=== PATIENT | male | born 1995 | race Caucasian/White ===

== ENCOUNTER 2019-11-18 09:27 | Emergency (ER) | payer OTHER, MEDICAID, SELFPAY ==
[2019-11-18 09:30] VITALS: BP 186/98; PULSE 112; RESP 14; TEMP 36.9; O2SAT 97; BMI 21.1
--- NOTE | 2019-11-18 09:35 | ED_ITS ---
HPI - Anxiety General Chief Complaint: Toxicology Problem Stated Complaint: Out of Anxiety Meds/Alcohol withdrawal Time Seen by Provider: 11/18/19 09:35 Source: patient Mode of arrival: Ambulatory Limitations: no limitations History of Present Illness HPI narrative: This is a 24-year-old male comes to the emergency department with complaint of anxiety, states probably some alcohol withdrawal and out of his anxiety medications. He states that he was taking propranolol, sertraline as well as hydroxyzine which he got from [facility] ran out about 3 days ago. He states that the medications were quite helpful. He states when he ran out he started drinking alcohol, he states he has been drinking ?too much.? Patient states that it has been hard alcohol but he did try detoxing with wine. He does use marijuana but denies any other illicit. He states this morning he woke up and was shaky so thought he might have had seizure. He has not had any confusion or altered mental status. He has not had any seizures in past. He has had some diarrhea but no nausea vomiting he states he has been feeling quite anxious and emotional as he is upset that he started drinking again as he has had problems in the past with alcohol abuse. He does state that he has anxious denies any suicidal ideation, homicidal ideation. He does wish to go to detox at this time but is interested possibly in the Librium script to help him with detox at home. Related Data Previous Rx's Medication Instructions Recorded chlordiazepoxide HCl See Rx Instructions .ROUTE 11/18/19 .COMPLEX #11 cap hydroxyzine HCl 50 mg PO TID PRN #90 tab 11/18/19 propranolol 20 mg PO TID #90 tab 11/18/19 sertraline 150 mg PO DAILY #45 tab 11/18/19 Allergies Allergy/AdvReac Type Severity Reaction Status Date / Time No Known Drug Allergies Allergy Verified 11/18/19 09:37 Review of Systems Review of Systems ROS Unobtainable: All systems reviewed & are unremarkable except as noted in HPI and below Patient History Medical History (Updated 11/18/19 @ 11:11 by Gabriela Tellez DO) Alcohol abuse (Acute) Anxiety (Acute) Social History Smoking Status: Current every day smoker Exam Narrative Exam Narrative: GEN: well nourished, well appearing male, alert and oriented x 3, patient appears to be in mild distress. HEENT: Atraumatic, pupils are equal round reactive to light, extraocular movements are intact, nares are clear. Moist mucous membranes HEART: Regular rate and rhythm without murmur, clicks, rubs. LUNGS:Lungs clear to auscultation, no wheezes, rales, crackles, chest moves symmetrically ABD:bowel sounds normal, soft, non-tender, no guarding, rebound, rigidity, no masses noted, no hepatosplenomegaly :No CVA tenderness MSCL: Non-tender, no muscle atrophy, muscles strength 5/5 upper and lower extremities, full range of motion, normal gait NEURO:CN 2-12 intact, sensation normal, mildly tremulous PSYCH: Positive for anxiety, denies suicidal ideation or intent, denies any homicidal. Denies hallucinations or any schizophrenia or bipolar. Initial Vital Signs Initial Vital Signs: Vital Signs Temperature 98.5 F 11/18/19 09:30 Pulse Rate 112 H 11/18/19 09:30 Respiratory Rate 14 11/18/19 09:30 Blood Pressure 186/98 H 11/18/19 09:30 Pulse Oximetry 97 11/18/19 09:30 Course Orders Ordered: ED Orders 11/18/19 10:15 Complete Blood Count AUTO DIFF Stat Comprehensive Metabolic Panel Stat Ethanol (ETOH) Stat Hepatic (Liver) Panel Stat Lipase Stat Magnesium Stat 11/18/19 10:40 Urine Drug Screen, Rapid Stat Discontinued Medications Chlordiazepoxide HCl (Librium) 25 mg PO NOW ONE Stop: 11/18/19 09:58 Last Admin: 11/18/19 10:06 Dose: 25 mg Documented by: FEREDOM Sodium Chloride (Normal Saline 0.9%) 1,000 mls @ 1,000 mls/hr IV BOLUS ONE Stop: 11/18/19 10:56 Last Admin: 11/18/19 10:06 Dose: 1,000 mls/hr Documented by: FREEDOM Vital Signs Vital signs: Vital Signs - 8 hr 11/18/19 09:30 11/18/19 10:00 11/18/19 11:30 Temperature 98.5 F Pulse Rate 112 H 102 H 102 H Respiratory Rate 14 21 16 Blood Pressure 186/98 H Blood Pressure [Left Arm] 177/84 H 143/80 H Pulse Oximetry 97 96 100 MDM - Anxiety Lab Data Result diagrams: 11/18/19 10:15 11/18/19 10:15 Labs: Lab Results 11/18/19 11/18/19 11/18/19 Range/Units 10:15 10:15 10:40 WBC 8.1 (4.5-11.0) X10^3/uL RBC 5.17 (4.5-5.9) X10^6/uL Hgb 15.6 (13.5-17.5) g/dL Hct 45.8 (41-53) % MCV 88.6 (80-100) fL MCH 30.3 (26-34) PG MCHC 34.2 (30-36) % RDW 14.5 (11.6-14.8) % Plt Count 201 (150-400) X10^3/uL Neut % (Auto) 63.1 (50-75) % Lymph % (Auto) 23.0 L (25-40) % O'Brien % (Auto) 12.7 (3-14) % Eos % (Auto) 0.4 L (2-4) % Baso % (Auto) 0.8 (0-2) % Neut # (Auto) 5100 (7735-7870) /uL Lymph # (Auto) 1900 (4442-6815) /uL O'Brien # (Auto) 1000 H (0-900) /uL Eos # (Auto) 0 (0-450) /uL Baso # (Auto) 100 (0-100) /uL Sodium 139 (137-145) mmol/L Potassium 3.8 (3.4-5.1) mmol/L Chloride 102 (98-107) mmol/L Carbon Dioxide 29 (22-32) mmol/L BUN 10 (9-20) mg/dL Creatinine 0.68 (0.66-1.25) mg/dL Estimated GFR > 60.0 (>60) mL/min BUN/Creatinine Ratio 14.7 (6-22) Glucose 110 H (70-100) mg/dL Calcium 9.0 (8.4-10.2) mg/dL Magnesium 2.1 (1.6-2.3) mg/dL Total Bilirubin 0.7 (0.2-1.3) mg/dL Conjugated Bilirubin 0.0 (0.0-0.3) md/dL Unconjugated Bilirubin 0.6 (0.0-1.1) mg/dL AST 34 (17-59) IU/L ALT 29 (<50) IU/L Alkaline Phosphatase 96 (38-126) U/L Total Protein 7.4 (6.3-8.2) g/dL Albumin 4.5 (3.5-5.0) g/dL Globulin 2.9 (1.7-4.1) g/dL Albumin/Globulin Ratio 1.6 (1.0-2.8) Lipase 29 (23-300) U/L U Opiates 300ng/mL cut Negative (Negative) Ur Oxycodone Screen Negative (Negative) Urine Methadone Screen Negative (Negative) Ur Barbiturates Screen Negative (Negative) U Tricyclic Antidepress Negative (Negative) Ur Phencyclidine Scrn Negative (Negative) Ur Amphetamines Screen Negative (Negative) U Methamphetamines Scrn Negative (Negative) Ur MDMA Scrn (Ecstasy) Negative (Negative) U Benzodiazepines Scrn Negative (Negative) Urine Cocaine Screen Negative (Negative) U Marijuana (THC) Screen Positive H (Negative) Ethyl Alcohol 182 H ( - 10) mg/dL MDM Narrative Medical decision making narrative: Patient comes in requesting medications for anxiety and alcohol withdrawal. He is tachycardic and hypertensive in the department was slightly tremulous. CBC shows low lymphocytes, glucose is 110 with normal electrolytes and renal function and normal LFTs and lipase. ETOH is 182. UDS shows thc and otherwise negative. Patient received fluids and a dose of Librium here in the department. He is requesting a prescription for librium for home. He does not wish for detox the facility he states he has had negative experiences in the past. Patient would also like refill of his normal anxiety medications. Was given 30 days worth as well as provider access line number. Patient's heart rate and blood pressure has improved in the department and he is feeling much better. Discharge Plan Departure Patient Disposition: Home Clinical Impression: Alcohol abuse, Anxiety Discharge Date/Time: 11/18/19 11:49 Instructions: DI for Alcohol Abuse Activity Restrictions/Additional Instructions: Follow up with primary care for recheck. If you do not have a primary care physician you can call [phone] to establish with a physician. Take medication as prescribed. This medication can make you sleepy do not drive, perform hazardous activities or make any major decisions while taking it. Return to the ER if you are having worsening symptoms, if you feel suicidal or have any homicidal ideation or have worsening anxiety or depression, if you have persistent vomiting, black or bloody stools or other concerning changes. If you feel you need to go to [facility]. Call had of time ([phone]) to inquire about an available bed. If there are no beds called daily and 9 AM and 9 PM to check on bed availability. If you're feeling suicidal or having suicidal thoughts, contact the suicide h otline: . Prescriptions: New chlordiazepoxide HCl 25 mg capsule See Rx Instructions .ROUTE .COMPLEX Qty: 11 RF: 0 hydroxyzine HCl 50 mg tablet 50 mg PO TID PRN (Reason: anxiety) Qty: 90 RF: 0 sertraline 100 mg tablet 150 mg PO DAILY Qty: 45 RF: 0 propranolol 20 mg tablet 20 mg PO TID Qty: 90 RF: 0
[2019-11-18 10:00] VITALS: BP 177/84; PULSE 102; RESP 21; O2SAT 96
[2019-11-18] MEDS: SODIUM CHLORIDE 0.9% 1,000 ML 1000 ML IV (10:06)
[2019-11-18] MEDS: chlordiazePOXIDE 25 MG CAPSULE PO (10:06)
[2019-11-18 10:25] LABS: Add Manual Diff / Slide Review NO; Basophils Absolute Auto 100 /uL (0-100); Basophils Percent Auto 0.8 % (0-2); Eosinophils Absolute Auto 0 /uL (0-450); Eosinophils Percent Auto 0.4 % (2-4); Hematocrit 45.8 % (41-53); Hemoglobin 15.6 g/dL (13.5-17.5); Lymphocytes Absolute Auto 1900 /uL (1100-4500); Mean Corpuscular HGB Conc 34.2 % (30-36); Mean Corpuscular Hemoglobin 30.3 PG (26-34); Mean Corpuscular Volume 88.6 fL (80-100); Monocytes Absolute Auto 1000 /uL (0-900); Monocytes Percent Auto 12.7 % (3-14); Neutrophils Absolute Auto 5100 /uL (1500-7000); Neutrophils Percent Auto 63.1 % (50-75); Platelet Count 201 X10^3/uL (150-400); Red Blood Cell Count 5.17 X10^6/uL (4.5-5.9); Red Cell Distribution Width 14.5 % (11.6-14.8); White Blood Cell Count 8.1 X10^3/uL (4.5-11.0)
[2019-11-18 10:37] LABS: Alanine Aminotransferase 29 IU/L (<50); Albumin 4.5 g/dL (3.5-5.0); Albumin Globulin Ratio 1.6 (1.0-2.8); Alkaline Phosphatase 96 U/L (38-126); Aspartate Aminotransferase 34 IU/L (17-59); BUN Creatinine Ratio 14.7 (6-22); Bilirubin Total 0.7 mg/dL (0.2-1.3); Bilirubin Unconjugated 0.6 mg/dL (0.0-1.1); Blood Urea Nitrogen 10 mg/dL (9-20); Carbon Dioxide 29 mmol/L (22-32); Chloride 102 mmol/L (98-107); Estimated Glomerular Filt Rate > 60.0 mL/min (>60); Ethanol (ETOH) 182 mg/dL; Globulin 2.9 g/dL (1.7-4.1); Glucose 110 mg/dL (70-100); HEMOLYSIS < 15 (0-50); Lipase 29 U/L (23-300); Magnesium 2.1 mg/dL (1.6-2.3); Potassium 3.8 mmol/L (3.4-5.1); Sodium 139 mmol/L (137-145); Total Protein 7.4 g/dL (6.3-8.2)
[2019-11-18 10:57] LABS: UR Morphine/Opiate cutoff 300 Negative (Negative); Ur Creatinine Normal (Normal); Ur Specific Gravity Normal (Normal); Urine Cocaine Negative (Negative); Urine Tetrahydrocannabinol Positive (Negative); Urine pH Normal (Normal)
[2019-11-18 10:58] LABS: Urine Amphetamines Negative (Negative); Urine Barbiturates Negative (Negative); Urine Benzodiazepines Negative (Negative); Urine MDMA Negative (Negative); Urine Methadone Negative (Negative); Urine Methamphetamines Negative (Negative); Urine Oxycodone Negative (Negative); Urine Phencyclidine Negative (Negative); Urine Tricyclic Antidepressant Negative (Negative)
[2019-11-18 11:30] VITALS: BP 143/80; PULSE 102; RESP 16; O2SAT 100
== END 2019-11-18 11:49 | disposition home or self-care (01) ==
PROVIDERS: Emergency Provider Emergency Medicine
DX: F10.10 Alcohol abuse, uncomplicated (principal); F41.9 Anxiety disorder, unspecified
CPT/HCPCS: 36415; 80053; 80076; 80305; 80320; 83690; 83735; 85025; 96360; 96361; 99284

== ENCOUNTER 2020-01-25 07:49 | Emergency (ER) | payer OTHER, MEDICAID, SELFPAY ==
[2020-01-25 07:50] VITALS: BP 153/99; PULSE 120; RESP 20; TEMP 36.6; O2SAT 97; BMI 23.6
--- NOTE | 2020-01-25 07:50 | ED.ALCOHOL ---
HPI - Alcohol General Chief Complaint: Toxicology Problem Stated Complaint: alcohol withrawl Time Seen by Provider: 01/25/20 07:50 Source: patient Mode of arrival: Ambulatory Limitations: no limitations History of Present Illness HPI narrative: 24M daily smoker with history of heavy drinking presents with a desire to quite drinking. He does not drink every day but does binge drink upwards of a 5th of liquor daily when he is drinking. He denies any suicidal or homicidal ideations and is able to care for himself without difficulty. He denies any consequences of extensive alcohol abuse such as gastrointestinal bleeding, known esophageal varices or dark and tarry stools. He has been through rehab programs as recently as September in [facility]. He is in the [facility] because he has family locally and requires their support. He denies any headache, hallucinations, vision change but does feel a bit agitated. He denies any abdominal pain and states he feels like he has a small tremor. He has successfully gone through withdrawal periods with Librium taper in the past. He has not contacted any of the local alcohol facilities. MD complaint: alcohol dependence Last drink: just prior to this admission Chronic alcohol use: Yes Previous visits for alcohol intoxication: No Recent trauma: No Associated symptoms: denies other symptoms Treatments prior to arrival: none Related Data Previous Rx's Medication Instructions Recorded chlordiazepoxide HCl See Rx Instructions .ROUTE 11/18/19 .COMPLEX #11 cap hydroxyzine HCl 50 mg PO TID PRN #90 tab 11/18/19 propranolol 20 mg PO TID #90 tab 11/18/19 sertraline 150 mg PO DAILY #45 tab 11/18/19 chlordiazepoxide HCl See Rx Instructions .ROUTE 01/25/20 .COMPLEX PRN #32 cap Allergies Allergy/AdvReac Type Severity Reaction Status Date / Time No Known Drug Allergies Allergy Verified 11/18/19 09:37 Review of Systems Constitutional Constitutional: Denies chills, Denies fatigue, Denies fever(s), Denies frequent falls, Denies lethargy and Denies weakness Eyes Eyes: Denies change in vision, Denies eye discharge, Denies irritation and Denies loss of vision ENT Ears, Nose, Mouth, and Throat: Denies change in voice, Denies dizziness, Denies neck pain, Denies sore throat and Denies throat swelling Cardiovascular Cardiovascular: Denies chest pain, Denies irregular heart rhythm, Denies lightheadedness, Denies palpitations, Denies dyspnea, Denies dyspnea on exertion and Denies orthopnea Respiratory Respiratory: Denies cough, Denies dyspnea, Denies dyspnea on exertion and Denies wheezing Gastrointestinal Gastrointestinal: Denies abdominal pain, Denies change in bowel habits, Denies diarrhea, Denies nausea and Denies vomiting Musculoskeletal Musculoskeletal: Denies neck pain and Denies numbness Integumentary/Breasts Skin/Breast: Denies pruritus, Denies erythema, Denies rash and Denies wounds Neurologic Neurologic: Denies behavioral changes, Denies confusion, Denies dizziness, Denies frequent falls, Denies loss of vision, Denies numbness and Denies weakness Psychiatric Psychiatric: Reports anxiety, Denies behavioral changes, Denies confusion, Denies depression, Denies homicidal ideation and Denies suicidal ideation Comments: agitation, mild tremor Endocrine Endocrine: Denies fatigue, Denies flushing and Denies palpitations Hematologic/Lymphatic Hematologic/Lymphatic: Denies easy bruising Allergic/Immunologic Allergic/Immunologic: Denies urticaria, Denies throat swelling and Denies wheezing Patient History Medical History Alcohol abuse (Acute) Anxiety (Acute) Social History Smoking Status: Current every day smoker Smoking Status: Current every day smoker alcohol intake frequency: 3 or more drinks per day Substance Use Type: marijuana Exam Narrative Exam Narrative: GENERAL: [24] year old patient appears stated age. Well-nourished, well-developed patient, in mild distress. Anxious HEAD: Atraumatic. Normocephalic. EYES: Pupils equal round and reactive. Extraocular motions intact. No scleral icterus. No injection or drainage. ENT: Nose without bleeding, purulent drainage. Throat without erythema, tonsillar hypertrophy or exudate. Airway patent. NECK: Trachea midline. Non tender CARDIOVASCULAR: Regular rate and rhythm without murmurs, gallops, or rubs. Initial tachycardia on vitals resolved on exam RESPIRATORY: Clear to auscultation. Breath sounds equal bilaterally. No wheezes, rales, or rhonchi. GASTROINTESTINAL: Abdomen soft, non-tender, nondistended. EXTREMITIES: No edema or joint tenderness. BACK: Nontender without deformity or crepitance. No flank tenderness. NEURO: AOx3. SKIN: No rash or erythema of visible areas Initial Vital Signs Initial Vital Signs: Vital Signs Temperature 97.8 F 01/25/20 07:50 Pulse Rate 120 H 01/25/20 07:50 Respiratory Rate 20 01/25/20 07:50 Blood Pressure 153/99 H 01/25/20 07:50 Pulse Oximetry 97 01/25/20 07:50 Course Vital Signs Vital signs: Vital Signs - 8 hr 01/25/20 07:50 Temperature 97.8 F Pulse Rate 120 H Respiratory Rate 20 Blood Pressure 153/99 H Pulse Oximetry 97 Discharge Plan Departure Patient Disposition: Home Clinical Impression: Alcohol abuse Discharge Date/Time: 01/25/20 08:28 Instructions: DI for Alcohol Abuse Activity Restrictions/Additional Instructions: *You have been diagnosed with [alcohol abuse with minor withdrawal symptoms] *What to do: *Take medications as directed: Sent to [facility] in [place] at your request *Follow up with your primary care provider in 2-3 days, call for an appointment. Let them know you were seen in the Emergency Department and that we ask that you be seen in follow up *Return to ER if you should have any new, worsening or concerning symptoms Prescriptions: New chlordiazepoxide HCl 25 mg capsule See Rx Instructions .ROUTE .COMPLEX PRN (Reason: alcohol withdrawal) Qty: 32 RF: 0 No Action chlordiazepoxide HCl 25 mg capsule See Rx Instructions .ROUTE .COMPLEX Qty: 11 RF: 0 hydroxyzine HCl 50 mg tablet 50 mg PO TID PRN (Reason: anxiety) Qty: 90 RF: 0 sertraline 100 mg tablet 150 mg PO DAILY Qty: 45 RF: 0 propranolol 20 mg tablet 20 mg PO TID Qty: 90 RF: 0 Referrals: [facility] [Outside] [facility] [Outside] [facility] [Outside] [facility] [Outside]
== END 2020-01-25 08:28 | disposition home or self-care (01) ==
PROVIDERS: Emergency Provider Emergency Medicine
DX: F10.10 Alcohol abuse, uncomplicated (principal)
CPT/HCPCS: 99282